=== PATIENT | female | born 1980 | race Two or more races ===

== ENCOUNTER 2019-09-29 22:00 | Emergency (ER) | payer OTHER ==
[~2019-09-29] VITALS: Ht 152.4 cm; Wt 59.0 kg
[2019-09-30] MEDS ORDERED: KETO10TA2 PO (03:02)
== END 2019-09-30 00:30 | disposition home or self-care (01) ==
LOC: ER 22:00 → EDBD 22:56 → ER 09-30 00:30
DX: N93.8 Other specified abnormal uterine and vaginal bleeding (principal)

== ENCOUNTER 2019-10-05 05:26 | Emergency (ER) | payer OTHER ==
[~2019-10-05] VITALS: Ht 162.6 cm; Wt 59.4 kg
[~2019-10-05 05:26] MED LIST: KETO10TA2 PO
== END 2019-10-05 11:16 | disposition home or self-care (01) ==
LOC: ER 05:26
DX: R07.89 Other chest pain (principal); F06.4 Anxiety disorder due to known physiological condition

== ENCOUNTER 2021-01-29 04:52 | Emergency (ER) | payer OTHER ==
[~2021-01-29] VITALS: Ht 162.6 cm; Wt 57.6 kg
[2021-01-29] MEDS ORDERED: VISTARIL25 MG (05:14)
[2021-01-29] MEDS ORDERED: KETO10TA2 PO (07:25)
== END 2021-01-29 07:36 ==
LOC: ER 04:52
DX: R00.2 Palpitations (principal); M94.0 Chondrocostal junction syndrome [Tietze]

== ENCOUNTER 2021-03-17 00:31 | Emergency (ER) | payer OTHER ==
[~2021-03-17] VITALS: Ht 162.6 cm; Wt 56.7 kg
[~2021-03-17 00:31] MED LIST changes: +VISTARIL25 MG
[2021-03-17] MEDS ORDERED: KETO10TA2 PO (05:47)
== END 2021-03-17 05:56 | disposition home or self-care (01) ==
LOC: ER 00:31
DX: M94.0 Chondrocostal junction syndrome [Tietze] (principal); R07.89 Other chest pain